=== PATIENT | female | born 1970 | race African-American/Black ===

== ENCOUNTER 2024-07-21 05:30 | Emergency (ER) | payer OTHER, SELFPAY ==
--- NOTE | ~2024-07-21 | XR_ITS ---
CLINICAL HISTORY: pain injury 3 view left humerus Comparison: None Findings: No fractures or dislocations. No significant arthritic change. No radiopaque foreign body. There are calcifications adjacent to the humeral greater tuberosity possibly related to calcific bursitis. Clinical follow-up recommended. IMPRESSION: 1. No acute findings This document has been electronically signed by: Que Toure MD on 07/21/2024 06:54:02
--- NOTE | ~2024-07-21 | XR_ITS ---
CLINICAL HISTORY: injury pain 3 view left shoulder Comparison: None Findings: No fractures or dislocations. No significant arthritic change. Calcification adjacent to the greater tuberosity possibly related to calcific bursitis. No erosions. No radiopaque foreign body. IMPRESSION: 1. No acute findings 2. Possible calcific bursitis. Clinical follow-up recommended. This document has been electronically signed by: Que Toure MD on 07/21/2024 06:52:34
--- NOTE | ~2024-07-21 | CT_ITS ---
EXAMINATION: CT SHOULDER WITHOUT CONTRAST, LEFT CLINICAL INFORMATION: Pain, rule out dislocation. COMPARISON: Plain films dated earlier same day. TECHNIQUE: Spiral CT imaging of the left shoulder performed in axial plane without contrast. Multiplanar reformatted images were constructed from the axial data set. This CT examination was performed using dose optimization techniques as appropriate, variously including the following: *Automated exposure control *Adjustment of mA and/or kV according to patient size (this includes techniques or standardized protocols for targeted exams where dose is matched to indication/reason for exam; i.e. extremities or head) *Use of iterative reconstruction technique FINDINGS: There is no discrete fracture or dislocation. There are no suspicious bone lesions. There is normal alignment of the glenohumeral joint. There is moderate degenerative type arthritis of the glenohumeral joint, with undersurface osteophytic spurring, and associated subchondral cystic changes of the glenoid. Similar degenerative changes noted in the AC joint, with superior and undersurface spurring. There is abundant calcification of the infraspinatus tendon abutting the insertion, consistent with moderate to advanced calcific tendinopathy. Imaged left lung is clear. There is cardiomegaly. Imaged soft tissues appear normal. CT/CT shoulder LT wo IV con IMPRESSION: 1. No acute fracture or dislocation of the left shoulder. 2. 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 3. Moderate to advanced calcific tendinopathy of the infraspinatus tendon. 4. Cardiomegaly. Electronically signed by: Angel Woods MD 07/21/2024 08:16 AM EDT
[2024-07-21 05:37] VITALS: BP 182/93; PULSE 85; RESP 18; TEMP 36.9; O2SAT 98; BMI 42.2
[2024-07-21] MEDS: oxyCODONE HCl Immed Release 5 MG TABLET PO (06:53)
--- NOTE | 2024-07-21 07:04 | ED.EXTPRO ---
HPI - Extremity Problem General Chief complaint: Extremity Injury, Upper Stated complaint: left arm pain Time Seen by Provider: 07/21/24 06:14 Source: patient Mode of arrival: ambulatory Limitations: no limitations History of Present Illness ED Provider: Dr. Marie Grimes HPI Narrative: Patient comes to the emergency room complaining of left shoulder pain. Patient states that it has been 3 days since her left shoulder started hurting. Initially, patient thought this was arthritis, has been taking medications/Celebrex without any relief. Patient states that now it is more difficult to move her arm. Patient denies any obvious injury, denies trauma. Related Data Previous Rx's ?Medication ?Instructions ?Recorded cyclobenzaprine 10 mg tablet 10 mg PO TID PRN muscle spasm #20 07/21/24 tabs hydrocodone 5 mg-acetaminophen 325 1 tab PO Q6H PRN pain #10 tabs 07/21/24 mg tablet lidocaine 5 % topical patch 1 patch topical DAILY #30 ea 07/21/24 Allergies Allergy/AdvReac Type Severity Reaction Status Date / Time No Known Allergies Allergy Verified 07/21/24 05:46 Review of Systems Review of Systems: Constitutional : No Weight loss, No Fever, No Chills, No Night Sweats, No Fatigue, No Malaise ENT/Mouth : No Hearing loss, No Ear Pain, No Nasal Congestion, No Sinus Pain, No Hoarseness, No sore throat, No Rhinorrhea, No Swallowing Difficulty Eyes: No Eye Pain, No Swelling, No Redness, No Foreign Body, No Discharge, No Vision Changes Cardiovascular : No Chest Pain, No SOB, No Dyspnea on Exertion, No Orthopnea, No Edema, No Palpitations Respiratory : No Cough, No Sputum, No Wheezing, No Smoke Exposure, No Dyspnea Gastrointestinal : No Nausea, No Vomiting, No Diarrhea, No Constipation, No abdominal Pain, No Hematochezia, No Melena Genitourinary : no irregular bleeding, No Dysuria, No Urinary Frequency, No Hematuria, No Urinary Incontinence, No Urgency, No Flank Pain, No Urinary Flow Changes, No Hesitancy Musculoskeletal : Complaining of left shoulder pain, having difficulty moving it due to severe pain Skin : No Skin Lesions, No rash Neuro : No Weakness, No Numbness, No Paresthesias, No Loss of Consciousness, No Dizziness, No Headache Psych : Feeling very anxious about being here in the hospital Heme/Lymph: No Bruising, No Bleeding,No Lymphadenopathy Endocrine : No Polyuria, No Polydipsia, No Temperature Intolerance [facility] Social History Social History Advance Directives: No Advance Directives Information Provided: Yes Do you have a plan to hurt others: No Plan Physical Exam Vital Signs: Vital Signs: Last Vital Signs Temp 98.5 F 07/21/24 05:37 Pulse 85 07/21/24 05:37 Resp 18 07/21/24 05:37 BP 182/93 H 07/21/24 05:37 Pulse Ox 98 07/21/24 05:37 O2 Del Method Room Air 07/21/24 05:37 BMI result Body Mass Index 42.2 Const: Other: Appearance: Alert. Oriented X3. No acute distress. Eyes: Pupils equal, round and reactive to light. ENT: Pharynx normal. Neck: Normal inspection. Neck supple. No lymph nodes noted. No crepitus CVS: Normal heart rate and rhythm. Pulses normal. Normal S1 and S2 Respiratory: No respiratory distress. Breath sounds normal. No Wheezing. No rales Abdomen: Soft and nontender. No rigidity. No distention. Skin: Skin warm and dry. Normal skin color. Normal skin turgor. Extremities: No lower extremity edema. No Lacerations. No Rash. Patient is barely able to abduct the left arm past 30 degrees. Patient states it hurts too much to go anything above that. The way that patient is holding her left arm, seems to be dislocated. Patient has pain to palpation left shoulder anterior and posterior aspect Neuro: Oriented X 3. No motor deficit. No sensory deficit. Moving all extremities. No slurred speech. CN 2 through 12 grossly intact Psych: calm, cooperative, normal affect Course Course Course Narrative: no fracture or dislocation can be managed by PCP [facility] 07/21/24 825am Medications Administered Discontinued Medications Generic Name Dose Route Start Last Admin Trade Name Freq PRN Reason Stop Dose Admin Lorazepam 2 mg 07/21/24 07:04 07/21/24 07:16 Lorazepam 1 Mg Tablet PO 07/21/24 07:05 2 mg ONCE ONE Administration Oxycodone HCl 5 mg 07/21/24 06:49 07/21/24 06:53 Oxycodone Hcl Immed Release 5 Mg Tablet PO 07/21/24 06:50 5 mg ONCE ONE Administration Medical Decision Making Medical Decision Making [facility] Narrative: My interpretation of x-ray of the shoulder, possible dislocation. However, the x-ray was read as normal. Two confirmed, we will obtain a CT scan. Patient has previously been medicated with oxycodone. Patient is very anxious about being in the hospital without her daughter Agreeable with plan to get CAT scan. Patient's arm is on a sling while we do the imaging CT scan pending. Sign-out given to my colleague Dr. Galaviz Differential Diagnosis Differential Diagnoses: The differential diagnosis associated with the presentation includes (Shoulder dislocation, fracture, subluxation) Procedures Orthopedic Splinting/Casting Injury #1: Side: left Upper Extremity Injury Location: shoulder Upper Extremity Immobilizer: sling/shoulder immobilizer Additional Comments: NV intact Discharge Plan Discharge Clinical Impression: Left shoulder pain Qualifiers: Chronicity: acute Qualified Code(s): M25.512 - Pain in left shoulder Patient Disposition: Home, Self-Care Instructions: Arthralgia (ED), Shoulder Pain (ED) Additional Instructions: based off imaging suspect tendinopathy or rotator cuff issue can wear sling for comfort but no more than 5 days to prevent adhesive capsulitis return for worsening pain, numbness, weakness, tingling, cold hand please follow up with your doctor for outpatient MRI and PT on CT scan it also showed possible enlarged heart this could be related to high blood pressure please follow up with your doctor FINDINGS: There is no discrete fracture or dislocation. There are no suspicious bone lesions. There is normal alignment of the glenohumeral joint. There is moderate degenerative type arthritis of the glenohumeral joint, with undersurface osteophytic spurring, and associated subchondral cystic changes of the glenoid. Similar degenerative changes noted in the AC joint, with superior and undersurface spurring. There is abundant calcification of the infraspinatus tendon abutting the insertion, consistent with moderate to advanced calcific tendinopathy. Imaged left lung is clear. There is cardiomegaly. Imaged soft tissues appear normal. CT/CT shoulder LT wo IV con IMPRESSION: 1. No acute fracture or dislocation of the left shoulder. 2. 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 3. Moderate to advanced calcific tendinopathy of the infraspinatus tendon. 4. Cardiomegaly. Prescriptions: New cyclobenzaprine 10 mg tablet 10 mg PO TID PRN (Reason: muscle spasm) Qty: 20 0RF hydrocodone-acetaminophen 5-325 mg tablet 1 tab PO Q6H PRN (Reason: pain) Qty: 10 0RF Rx Instructions: partial fill okay; Partial Fill upon patient request. lidocaine 5 % adhesive patch,medicated 1 patch topical DAILY Qty: 30 0RF Rx Instructions: leave on most painful area for up to 12 hrs Stand Alone Forms: Work/School Release Print Language: Polish
[2024-07-21] MEDS: LORazepam 1 MG TABLET 2 MG PO (07:16)
[2024-07-21 08:42] VITALS: BP 149/76; PULSE 79; RESP 14; TEMP 36.9; O2SAT 95
== END 2024-07-21 08:43 | disposition home or self-care (01) ==
PROVIDERS: Emergency Provider Emergency Medicine; PCP Counselor
DX: M25.512 Pain in left shoulder (principal)
CPT/HCPCS: 29105; 73030; 73060; 73200; 99284

== ENCOUNTER → 2024-07-21 06:15 | Outpatient (BNV) | payer OTHER, SELFPAY | PROVIDERS: Emergency Provider Emergency Medicine; PCP Counselor; Visit Provider Specialist | DX: M79.602 Pain in left arm (principal); M25.512 Pain in left shoulder | CPT/HCPCS: 73030; 73060; 73200 ==